=== PATIENT | female | born 1970 | race Caucasian/White ===

== ENCOUNTER 2023-06-22 00:13 | Emergency (ER) | payer MEDICAID ==
[~2023-06-22] VITALS: Ht 157.5 cm; Wt 108.9 kg
[2023-06-22 00:16] VITALS: BP 115/60; PULSE 85; RESP 14; TEMP 97.1; O2SAT 96
[2023-06-22 01:31] VITALS: O2SAT 95
[2023-06-22] MEDS ORDERED: NACL 0.9% 1,000 ML IV ONE (02:15)
[2023-06-22 04:01] VITALS: O2SAT 95
[2023-06-22 07:48] VITALS: BP 120/78; PULSE 80; RESP 20; TEMP 98; O2SAT 98
== END 2023-06-22 07:48 | disposition home or self-care (01) ==
LOC: MED 00:13
DX: F10.129 Alcohol abuse with intoxication, unspecified (principal); R41.82 Altered mental status, unspecified; Y90.9 Presence of alcohol in blood, level not specified
CPT/HCPCS: 36415; 96360; 99285; G0482; J7030